=== PATIENT | male | born 1945 | race Two or more races ===

== ENCOUNTER 2017-05-13 08:07 | Emergency (ER) | payer MEDICARE, OTHER ==
[2017-05-13] MEDS ORDERED: Metoprolol Tartrate 5 MG/5 ML SDV IVPUSH ONE (08:29)
[2017-05-13] MEDS ORDERED: Ticagrelor 90 MG Tab PO ONE (08:29)
[2017-05-13] MEDS ORDERED: Famotidine 20 MG/2 ML SDV IVPUSH ONE (08:29)
[2017-05-13] MEDS ORDERED: Sodium Chloride 0.9% 10 ML Syringe FLUSH PRN ×2 (08:29→09:55)
--- NOTE | 2017-05-13 08:31 | EDM.PDOC ---
ED HPI GENERAL MEDICAL PROBLEM - General Chief Complaint: Chest Pain Stated Complaint: CHEST PAIN, WEAK LEGS Time Seen by Provider: 05/13/17 08:10 Source of Information: Reports: Patient, EMS, EMS Notes Reviewed. Denies: Old Records ([facility] chart/EMR) History Limitations: Reports: No Limitations - History of Present Illness INITIAL COMMENTS - FREE TEXT/NARRATIVE: The patient was brought to the emergency room via ambulance with sales trainee accompaniment with sales trainee intersecting basic responders. Paramedics did place a saline lock, administer one sublingual nitroglycerin tablet and 4 baby aspirin with the patient already taking one sublingual nitroglycerin tablet and a baby aspirin on his own at home earlier this morning. He complains of 8/10 nonspecific paresthesia discomfort with additional 8/10 retrosternal chest pressure associated with heart flutter, dizziness, questionable secondary dystaxia, and dyspnea with symptoms starting at about 6:30 a.m. this morning. He has noticed some recent decreased exercise tolerance with one episode of emesis 4 days ago. No recent history of abdominal pain, heartburn, nausea, diarrhea, melena, gross hematochezia, or any food intolerance, including fatty foods, etc. with normal bowel movement earlier this morning. The patient also denies any recent fever, cough, wheezing, dyspnea, etc.. Onset: Today Onset Date: 05/13/17 Onset Time: 06:00 Duration: Constant Location: Reports: Chest, Other (Generalized paresthesias as above). Denies: Head, Face, Neck, Abdomen, Back, Upper Extremity, Left, Upper Extremity, Right, Generalized, Radiates to Quality: Reports: Pressure, Same as Previous Episode Severity: Moderate Improves with: Reports: None Worsens with: Reports: None Context: Reports: Other (As above) Associated Symptoms: Reports: Shortness of Breath. 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: Reports: Aspirin, IV/IO, Nitroglycerin, Oxygen Chest Pain Score (Numeric/FACES): 8 - Related Data Allergies Allergy/AdvReac Type Severity Reaction Status Date / Time Penicillins Allergy Rash Verified 05/13/17 08:20 Home Meds: Home Meds Allopurinol [Zyloprim] 100 mg PO DAILY 05/13/17 [History] Aspirin [Aspirin EC] 325 mg PO DAILY 05/13/17 [History] Calcitriol 0.25 mcg PO DAILY 05/13/17 [History] Carvedilol [Coreg] 3.125 mg PO BID 05/13/17 [History] Digoxin 125 mcg PO DAILY 05/13/17 [History] Furosemide 40 mg PO 1800 05/13/17 [History] Furosemide [Lasix] 80 mg PO DAILY 05/13/17 [History] Gabapentin [Neurontin] 300 mg PO TID 05/13/17 [History] Isosorbide Mononitrate [Imdur] 60 mg PO BID 05/13/17 [History] Levothyroxine Sodium [Levo-T] 25 mcg PO DAILY 05/13/17 [History] Pantoprazole Sodium 40 mg PO DAILY 05/13/17 [History] Ranolazine [Ranexa] 1,000 mg PO BID 05/13/17 [History] atorvaSTATin Calcium [Atorvastatin Calcium] 20 mg PO DAILY 05/13/17 [History] traMADol Hcl/Acetaminophen [Ultracet Tablet] 1 each PO TID PRN 05/13/17 [History ] Past Medical History HEENT History: Reports: Cataract, Impaired Vision, Other (See Below). Denies: Allergic Rhinitis, Glaucoma, Macular Degeneration, Retinal Detachment Other HEENT History: Cataracts with no previous surgeries, patient wears glasses , bilateral presbycusis with current right-sided hearing aid therapy Cardiovascular History: Reports: Bypass, CAD, Cardiomyopathy, Heart Failure, Heart Murmur, High Cholesterol, Hypertension, Pacemaker, PVD, SOB on Exertion, Other (See Below). Denies: Afib, Aneurysm, Arrhythmia, Blood Clots/VTE/DVT, MA , Syncope Other Cardiovascular History: No previous history of MA or arrhythmia with status post CABG as below and pacemaker placement for his CHF Respiratory History: Reports: COPD, Intubation, Previous, Sleep Apnea, SOB, Other (See Below). Denies: Asthma, Intubation, Difficult, PE, Pneumothorax, TB Other Respiratory History: COPD by chest x-ray with no current medical therapy, chronic dyspnea likely secondary to his cardiac and pulmonary disease, sleep apnea with previous CPAP use with patient noncompliant at this time Gastrointestinal History: Reports: Diverticulosis, GERD, GI Bleed, PUD, Other ( See Below). Denies: Bowel Obstruction, Celiac Disease, Cholelithiasis, Chronic Constipation, Chronic Diarrhea, Colon Polyp, Fecal Incontinence, Gastritis, Hepatitis, Hiatal Hernia, Inflammatory Bowel Disease, Irritable Bowel Syndrome, Jaundice, Pancreatitis Other Gastrointestinal History: History of gastric ulcer with no upper GI bleed , however severe lower GI bleed secondary to diverticulitis in about 2013 with multiple blood transfusions as below Genitourinary History: Reports: BPH, Chronic Renal Insuffiency, Diabetic Nephropathy, Renal Calculus, Other (See Below). Denies: Acute Renal Failure, STD, Urinary Incontinence, UTI, Recurrent Other Genitourinary History: Urolithiasis in his 40s with spontaneous passage with unknown side Musculoskeletal History: Reports: Arthritis, Back Pain, Chronic, Gout, Neck Pain , Chronic, Osteoarthritis, Osteoporosis. Denies: Amputation, Fracture, RA, SLE Neurological History: Reports: Neuropathy, Diabetic, Neuropathy, Peripheral. Denies: Brain Injury, Cerebral Aneurysms, Concussion, CVA, Headaches, Chronic, Head Trauma, Migraines, MS, Parkinson's, Seizure, TIA Psychiatric History: Reports: Addiction, Anxiety, Depression, Other (See Below) . 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 Denies: Diabetes, Type I Hematologic History: Reports: Anemia, Blood Transfusion(s), Other (See Below) ( Multiple blood transfusions secondary to severe lower GI bleed from diverticulitis in about 2013) Immunologic History: Reports: None. Denies: AIDS, HIV, SLE Oncologic (Cancer) History: Reports: None. Denies: Colon, Hodgkin's Lymphoma, Leukemia, Lymphoma, Malignant Melanoma, Non-Hodgkin's Lymphoma, Prostate, Squamous Cell Carcinoma Dermatologic History: Reports: None. Denies: Eczema, Psoriasis - Infectious Disease History Infectious Disease History: Reports: None. Denies: C-Difficile, Chicken Pox, Measles, Meningitis, Mononucleosis, MRSA, Mumps, Pertussis (Whooping Cough), Rheumatic Fever, Rubella, Scarlet Fever, Shingles, VRE - Past Surgical History Head Surgeries/Procedures: Reports: None HEENT Surgical History: Reports: Oral Surgery, Other (See Below). Denies: Adenoidectomy, Cataract Surgery, Detached Retina, Eye Surgery, Laser Surgery, LASIK, Myringotomy w Tube(s), Naso-Sinus Surgery, Tonsillectomy Other HEENT Surgeries/Procedures: Multiple teeth extractions Cardiovascular Surgical History: Reports: Coronary Artery Bypass, Pacer, Other ( See Below). Denies: Coronary Artery Stent, Percutaneous Transluminal Angioplasty Other Cardiovascular Surgeries/Procedures: Pacemaker in about 2011, CABG 3 in 2010 Respiratory Surgical History: Reports: None. Denies: Thoracentesis GI Surgical History: Reports: Colonoscopy, Other (See Below). Denies: Appendectomy, Cholecystectomy, EGD, Hernia, Abdominal, Hernia, Inguinal, Hernia Repair/Other, Polypectomy Other GI Surgeries/Procedures: Multiple previous colonoscopies last in 2013 Male Surgical History: Reports: None. Denies: Circumcision, Kidney Stone Extraction, Renal Calculus, TURP-Transurethral Resection of Prostate, Vasectomy Endocrine Surgical History: Reports: None. Denies: Thyroid Biopsy Neurological Surgical History: Reports: Lumbar Spine, Spinal Fusion, Thoracic Spine, Other (See Below). Denies: C-Spine Other Neurological Surgeries/Procedures: Possible spinal fusion 3 in the lower thoracic and lumbar regions in 2014 Musculoskeletal Surgical History: Denies: Arthroscopic Procedure, Carpal Tunnel , Ganglion Cyst, Joint Replacement, ORIF, Shoulder Surgery Oncologic Surgical History: Reports: None Dermatological Surgical History: Reports: None Social & Family History - Tobacco Use Smoking Status *Q: Former Smoker Tobacco Use Within Last Twelve Months: Cigarettes Years of Tobacco use: 33 Packs/Tins Daily: 0.5 (Smoked between ages 12 and 45 and stopped in 1990) Used Tobacco, but Quit: Yes Month Tobacco Last Used: As above Smoking Cessation Information Provided To Patient: No Second Hand Smoke Exposure: Yes Source of Second Hand Smoke Exposure: smokes Second Hand Smoke Education Provided: Yes - Caffeine Use Caffeine Use: Reports: Coffee (1 cup per day during the winter), Soda (1 soda per week), Tea (1 glass per day). Denies: Energy Drinks - Alcohol Use Alcohol Use History: No Days Per Week of Alcohol Use: 0 (No previous DWIs, problems with alcohol abuse, etc.) Alcohol Use in Last Twelve Months: No - Recreational Drug Use Recreational Drug Use: No Drug Use in Last 12 Months: No Recreational Drug Type: Reports: Cocaine (Snorting cocaine in his 30s with no previous treatment and use of about one year), Marijuana/Hashish (Marijuana use in his 20s). 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 Denies: Fever, Chills, Malaise, Weakness , Night Sweats, Diaphoresis, Decreased Appetite, Weight Loss HEENT: Reports: Glasses, Hearing Loss (Stable chronic). Denies: Dental Pain, Ear Discharge, Ear Pain, Eye Discharge, Eye Pain, Nose Pain, Rhinitis, Sinus Problem, Throat Pain, Throat Swelling, Vertigo, Vision Change Respiratory: Reports: Shortness of Breath. Denies: Wheezing, Pleuritic Chest Pain, Cough, Hemoptysis Cardiovascular: Reports: Chest Pain, Dyspnea on Exertion, Lightheadedness, Palpitations. Denies: Blood Pressure Problem, Claudication, Edema, Orthopnea, PND, Syncope Endocrine: Reports: No Symptoms, Fatigue (Decreased exercise tolerance) GI/Abdominal: Reports: No Symptoms. Denies: Abdominal Pain, Anorexia, Black Stool, Bloody Stool, Constipation, Diarrhea, Distension, Flatus, Hematemesis, Hematochezia, Melena, Nausea, Stool Incontinence, Vomiting : Reports: No Symptoms. Denies: Discharge, Dysuria, Flank Pain, Frequency, Hematuria, Incontinence, Pain, Urgency, Urinary Retention Musculoskeletal: Reports: No Symptoms. Denies: Neck Pain, Shoulder Pain, Arm Pain, Leg Pain Skin: Reports: No Symptoms. Denies: Diaphoresis, Bruising, Wound Neurological: Reports: Dizziness, Numbness, Paresthesia, Tingling. Denies: Confusion, Headache, Seizure, Syncope, Trouble Speaking, Difficulty Walking, Weakness, Change in Speech, Gait Disturbance Psychiatric: Reports: No Symptoms. Denies: Agitation, Anxiety, Confusion, Depression, Hallucinations, Homicidal Ideation, Mood Lability, Suicidal Ideation Hematologic/Lymphatic: Reports: No Symptoms Immunologic: Reports: No Symptoms ED EXAM, GENERAL - Physical Exam Exam: See Below Exam Limited By: No Limitations General Appearance: Alert, WD/WN, No Apparent Distress Eye Exam: Bilateral Eye: EOMI, Normal Fundi (No nystagmus), PERRL Ears: Normal External Exam, Normal Canal, Normal TMs, Hearing Loss (Mild to moderate bilateral presbycusis with no hearing aids present today) Nose: Normal Inspection, Normal Mucosa, No Blood Throat/Mouth: Normal Inspection, Normal Lips, Normal Gums, Normal Oropharynx, Normal Voice, No Airway Compromise. No: Normal Teeth (Multiple missing teeth), Dysphagia, Perioral Cyanosis Head: Atraumatic, Normocephalic. No: Facial Swelling, Facial Tenderness, Sinus Tenderness Neck: Normal Inspection, Supple, Non-Tender, Full Range of Motion, Carotid Bruit (Mild Bilateral carotid bruits versus transmitted heart sounds). No: Lymphadenopathy (L), Lymphadenopathy (R), Thyromegaly Respiratory/Chest: No Respiratory Distress, No Accessory Muscle Use, Chest Non- Tender, Rales (Mild bilateral basilar rales). No: Pleural Rub, Retractions Cardiovascular: Normal Peripheral Pulses, Regular Rate, Rhythm, No Edema, No Gallop, No JVD, No Rub, Systolic Murmur (Mild 1/6 JAKOB at the aortic and mitral valves). No: Gallop/S3, Gallop/S4, Friction Rub Peripheral Pulses: 3+: Radial (L), Radial (R), Dorsalis Pedis (L), Dorsalis Pedis (R) GI/Abdominal: Normal Bowel Sounds, Soft, Non-Tender, No Organomegaly, No Distention, No Abnormal Bruit, No Mass, Pelvis Stable. No: Guarding (Male) Exam: Deferred Rectal (Males) Exam: Deferred Back Exam: Normal Inspection, Full Range of Motion. No: CVA Tenderness (L), CVA Tenderness (R), Muscle Spasm Extremities: Normal Inspection, Normal Range of Motion, Non-Tender, No Pedal Edema, Normal Capillary Refill. No: Bart's Sign Neurological: Alert, Oriented, CN II-XII Intact, Normal Cognition, Normal Gait, Normal Reflexes (Negative Babinski's), No Motor/Sensory Deficits Psychiatric: Normal Affect, Normal Mood Skin Exam: Warm, Dry, Intact, Normal Color, No Rash. No: Ecchymosis, Petechiae , Wound/Incision Lymphatic: No Adenopathy EKG INTERPRETATION EKG Date: 05/13/17 Time: 08:32 Rhythm: Other (100% paced) Rate (Beats/Min): 71 Cadott: LAD-Left Cadott Deviation P-Wave: Absent QRS: Wide (Secondary to pacer) ST-T: Other (Paced rhythm) QT: Normal (Paced rhythm) Comparison: NA - No Prior EKG EKG Interpretation Comments: 1. 100% paced rhythm 2. No acute ischemic changes Course - Vital Signs Last Recorded V/S: Last Vital Signs Temp 36.1 C 05/13/17 08:29 Pulse 70 05/13/17 10:02 Resp 16 05/13/17 10:02 BP 138/62 05/13/17 10:02 Pulse Ox 100 05/13/17 10:02 Vital Signs - 24 hr 05/13/17 05/13/17 05/13/17 08:09 08:29 08:39 Temperature [ 36.1 C 36.1 C Temporal] Pulse, 70 Peripheral Pulse, 78 70 Peripheral [ Left Pulse Oximetry] Respiratory 16 12 Rate Blood Pressure 148/66 H Blood Pressure 155/76 H 148/66 H [Right Upper Arm] O2 Sat by Pulse 99 100 Oximetry 05/13/17 05/13/17 05/13/17 08:49 09:01 09:16 Temperature [ Temporal] Pulse, Peripheral Pulse, 70 70 70 Peripheral [ Left Pulse Oximetry] Respiratory 14 16 15 Rate Blood Pressure Blood Pressure 142/52 H 146/68 H 141/65 H [Right Upper Arm] O2 Sat by Pulse 100 100 100 Oximetry 05/13/17 05/13/17 05/13/17 09:31 09:46 10:02 Temperature [ Temporal] Pulse, Peripheral Pulse, 70 70 70 Peripheral [ Left Pulse Oximetry] Respiratory 15 12 16 Rate Blood Pressure Blood Pressure 131/65 104/61 138/62 [Right Upper Arm] O2 Sat by Pulse 100 100 100 Oximetry - Orders/Labs/Meds Orders: Active Orders 24 hr Category Date Time Status Cardiac Monitoring [RC] . DIRECTED Care 05/13/17 08:29 Active EKG Documentation Completion [RC] ASDIRECTED Care 05/13/17 08:29 Active Oxygen Therapy, ED [RC] CONTINUOUS Care 05/13/17 08:29 Active Peripheral IV Care [RC] . DIRECTED Care 05/13/17 08:29 Active Peripheral IV Care [RC] . DIRECTED Care 05/13/17 09:56 Active Pulse Oximetry [RC] CONTINUOUS Care 05/13/17 08:29 Active Up With Assistance [RC] PFP Care 05/13/17 08:29 Active Vital Signs [RC] PFP Care 05/13/17 08:29 Active Nothing per Oral Now Diet [DIET] Diet 05/13/17 Breakfast Active Chest 1V Frontal [CR] Stat Exams 05/13/17 08:29 Taken Heparin Sodium/D5W [Heparin 25,000 Units in D5W 500 ML] Med 05/13/17 10:00 Active 25,000 units in 500 ml IV TITRATE Nitroglycerin/D5W [Nitroglycerin 25 MG/D5W 250 ML] Med 05/13/17 09:00 Active 25 mg in 250 ml IV TITRATE Sodium Chloride 0.9% [Normal Saline] 1,000 ml Med 05/13/17 09:00 Active IV ASDIRECTED Sodium Chloride 0.9% [Saline Flush] Med 05/13/17 08:29 Active 10 ml FLUSH ASDIRECTED PRN Sodium Chloride 0.9% [Saline Flush] Med 05/13/17 09:55 Active 10 ml FLUSH ASDIRECTED PRN Obtain Past Medical Record [OM.PC] Urgent Oth 05/13/17 08:29 Active Peripheral IV Insertion Adult [OM.PC] Routine Oth 05/13/17 09:56 Ordered Peripheral IV Insertion Adult [OM.PC] Stat Oth 05/13/17 08:29 Ordered Resuscitation Status Stat Resus Stat 05/13/17 08:29 Ordered Medication Orders Nitroglycerin/Dextrose (Nitroglycerin 25 Mg/D5w 250 Ml) 25 mg in 250 mls @ 6 mls/hr IV TITRATE ROSETTA PRN Reason: 10 MCG/MIN Last Admin: 05/13/17 08:56 Dose: 10 mcg/min, 6 mls/hr Sodium Chloride (Normal Saline) 1,000 mls @ 30 mls/hr IV ASDIRECTED ROSETTA Last Admin: 05/13/17 08:56 Dose: 30 mls/hr Heparin Sodium/Dextrose (Heparin 25,000 Units In D5w 500 Ml) 25,000 units in 500 mls @ 0 mls/hr IV TITRATE ROSETTA; 12 UNITS/KG/HR PRN Reason: Protocol Last Admin: 05/13/17 10:03 Dose: 12.05 units/kg/hr, 17.5 mls/hr Sodium Chloride (Saline Flush) 10 ml FLUSH ASDIRECTED PRN PRN Reason: Keep Vein Open Sodium Chloride (Saline Flush) 10 ml FLUSH ASDIRECTED PRN PRN Reason: Keep Vein Open Labs: Laboratory Tests 05/13/17 05/13/17 05/13/17 Range/Units 08:15 08:15 08:15 WBC 11.2 H (4.0-10.2) K/uL RBC 2.90 L (4.33-5.41) M/uL Hgb 9.7 L (13.1-16.8) g/dL Hct 28.1 L (39.0-49.0) % MCV 96.9 (84.0-98.0) fL MCH 33.4 H (28.2-33.3) pg MCHC 34.5 (31.7-36.0) g/dL RDW 14.0 (11.2-14.1) % Plt Count 189 (150-350) K/uL Neut % (Auto) 80.2 H (45.0-80.0) % Lymph % (Auto) 9.2 L (10.0-50.0) % [place] % (Auto) 9.0 (2.0-14.0) % Eos % (Auto) 1.4 (0.0-5.0) % Baso % (Auto) 0.2 (0.0-2.0) % Neut # (Auto) 9.00 H (1.40-7.00) K/uL Lymph # (Auto) 1.03 (0.50-3.50) K/uL [place] # (Auto) 1.01 H (0.00-1.00) K/uL Eos # (Auto) 0.16 (0.00-0.50) K/uL Baso # (Auto) 0.02 (0.00-0.20) K/uL PT 10.6 (9.8-11.7) SEC INR 1.0 APTT 26.2 (23.5-30.0) SEC D-Dimer, Quantitative 1870 H (0-400) ng/mL Sodium (136-145) mmol/L Potassium (3.5-5.1) mmol/L Chloride (98-107) mmol/L Carbon Dioxide (21.0-32.0) mmol/L BUN (7-18) mg/dL Creatinine (0.51-1.17) mg/dL Est Cr Clr Drug Dosing mL/min Estimated GFR (MDRD) mL/min Glucose (74-106) mg/dL Lactic Acid (0.4-2.0) mmol/L Uric Acid (2.6-7.2) mg/dL Calcium (8.5-10.1) mg/dL Magnesium (1.8-2.4) mg/dL Total Bilirubin (0.2-1.0) mg/dL AST (15-37) U/L ALT (12-78) U/L Alkaline Phosphatase (46-116) IU/L Creatine Kinase (26-308) U/L Creatine Kinase Index (0.0-2.5) % CK-MB (CK-2) (0.00-3.60) ng/mL Troponin I (0.000-0.056) ng/mL NT-Pro-B Natriuret Pep (0-125) pg/mL Total Protein (6.4-8.2) g/dL Albumin (3.4-5.0) g/dL TSH, Ultra Sensitive (0.358-3.740) mIU/mL Digoxin (0.90-2.00) ng/mL 05/13/17 05/13/17 Range/Units 08:15 08:15 WBC (4.0-10.2) K/uL RBC (4.33-5.41) M/uL Hgb (13.1-16.8) g/dL Hct (39.0-49.0) % MCV (84.0-98.0) fL MCH (28.2-33.3) pg MCHC (31.7-36.0) g/dL RDW (11.2-14.1) % Plt Count (150-350) K/uL Neut % (Auto) (45.0-80.0) % Lymph % (Auto) (10.0-50.0) % Edmonson % (Auto) (2.0-14.0) % Eos % (Auto) (0.0-5.0) % Baso % (Auto) (0.0-2.0) % Neut # (Auto) (1.40-7.00) K/uL Lymph # (Auto) (0.50-3.50) K/uL [place] # (Auto) (0.00-1.00) K/uL Eos # (Auto) (0.00-0.50) K/uL Baso # (Auto) (0.00-0.20) K/uL PT (9.8-11.7) SEC INR APTT (23.5-30.0) SEC D-Dimer, Quantitative (0-400) ng/mL Sodium 130 L (136-145) mmol/L Potassium 4.6 (3.5-5.1) mmol/L Chloride 95 L (98-107) mmol/L Carbon Dioxide 24.9 (21.0-32.0) mmol/L BUN 62 H (7-18) mg/dL Creatinine 3.15 H* (0.51-1.17) mg/dL Est Cr Clr Drug Dosing 18.01 mL/min Estimated GFR (MDRD) 20 mL/min Glucose 220 H (74-106) mg/dL Lactic Acid 0.6 (0.4-2.0) mmol/L Uric Acid 6.7 (2.6-7.2) mg/dL Calcium 7.9 L (8.5-10.1) mg/dL Magnesium 1.6 L (1.8-2.4) mg/dL Total Bilirubin 0.7 (0.2-1.0) mg/dL AST 12 L (15-37) U/L ALT 16 (12-78) U/L Alkaline Phosphatase 88 (46-116) IU/L Creatine Kinase 123 (26-308) U/L Creatine Kinase Index 2.5 (0.0-2.5) % CK-MB (CK-2) 3.10 (0.00-3.60) ng/mL Troponin I 0.057 H (0.000-0.056) ng/mL NT-Pro-B Natriuret Pep 1220 H (0-125) pg/mL Total Protein 6.6 (6.4-8.2) g/dL Albumin 3.3 L (3.4-5.0) g/dL TSH, Ultra Sensitive 1.032 (0.358-3.740) mIU/mL Digoxin 4.17 H* (0.90-2.00) ng/mL Meds: Medications Generic Name Dose Route Start Last Admin Trade Name Freq PRN Reason Stop Dose Admin Nitroglycerin/Dextrose 25 mg in 250 mls @ 6 mls/hr 05/13/17 09:00 05/13/17 08 :56 Nitroglycerin 25 Mg/D5w 250 Ml IV 10 mcg/min TITRATE ROSETTA 6 mls/hr 10 MCG/MIN Administration Sodium Chloride 1,000 mls @ 30 mls/hr 05/13/17 09:00 05/13/17 08:56 Normal Saline IV 30 mls/hr ASDIRECTED ROSETTA Administration Heparin Sodium/Dextrose 25,000 units in 500 mls @ 0 mls/hr 05/13/17 10:00 10:03 Heparin 25,000 Units In D5w 500 Ml IV 12.05 units/kg/hr TITRATE ROSETTA 17.5 mls/hr Protocol Administration 12 UNITS/KG/HR Sodium Chloride 10 ml 05/13/17 08:29 Saline Flush FLUSH ASDIRECTED PRN Keep Vein Open Sodium Chloride 10 ml 05/13/17 09:55 Saline Flush FLUSH ASDIRECTED PRN Keep Vein Open Discontinued Medications Generic Name Dose Route Start Last Admin Trade Name Freq PRN Reason Stop Dose Admin Famotidine 40 mg 05/13/17 08:29 05/13/17 08:39 Pepcid IVPUSH 05/13/17 08:30 40 mg ONETIME ONE Administration Furosemide 60 mg 05/13/17 08:56 05/13/17 09:14 Lasix IVPUSH 05/13/17 08:57 60 mg NOW ONE Administration Metoprolol Tartrate 2.5 mg 05/13/17 08:29 05/13/17 08:39 Lopressor IVPUSH 05/13/17 08:30 2.5 mg ONETIME ONE Administration Ticagrelor 180 mg 05/13/17 08:29 05/13/17 08:38 Brilinta PO 05/13/17 08:30 180 mg ONETIME ONE Administration - Radiology Interpretation Free Text/Narrative:: 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 Moderate COPD noted with evidence of mild centralized CHF and probable pulmonary hypertension. Somewhat poor inspiratory film. Some left lower lobe atelectasis versus Rigo B lines but no evidence of other significant pulmonary infiltrates, pneumothorax, etc. Departure - Departure Time of Disposition: 10:40 Disposition: DC/Tfer to [facility] 02 Reason for Transfer *Q: Other (Cardiology consultation on arrival) Condition: Fair Clinical Impression: Hypoalbuminemia, Hypomagnesemia, Hypocalcemia, D-dimer, elevated Chest pain Qualifiers: Chest pain type: chest pain due to myocardial ischemia Ischemic chest pain type : unstable angina pectoris Qualified Code(s): I20.0 - Unstable angina CHF (congestive heart failure) Qualifiers: Congestive heart failure type: unspecified congestive heart failure type Congestive heart failure chronicity: acute on chronic Qualified Code(s): I50.9 - Heart failure, unspecified Digoxin toxicity Qualifiers: Encounter type: initial encounter Injury intent: undetermined intent Qualified Code(s): T46.0X4A - Poisoning by cardiac-stimulant glycosides and drugs of similar action, undetermined, initial encounter Renal failure Qualifiers: Renal failure chronicity: acute on chronic Acute renal failure type: unspecified Chronic kidney disease stage: stage 4 (severe) Qualified Code(s): N17.9 - Acute kidney failure, unspecified Anemia Qualifiers: Anemia type: due to chronic kidney disease Chronic kidney disease stage: stage 4 (severe) Qualified Code(s): N18.4 - Chronic kidney disease, stage 4 (severe) Osteoarthritis Qualifiers: Osteoarthritis location: multiple joints Osteoarthritis type: primary Qualified Code(s): M15.0 - Primary generalized (osteo)arthritis COPD (chronic obstructive pulmonary disease) Qualifiers: COPD type: emphysema Emphysema type: panlobular Qualified Code(s): J43.1 - Panlobular emphysema Diabetes mellitus Qualifiers: Diabetes mellitus type: type 2 Diabetes mellitus complication status: with kidney complications Diabetes mellitus complication detail: with chronic kidney disease Diabetes mellitus long term care pharmacist insulin use: without long term care pharmacist use Chronic kidney disease stage: stage 4 (severe) Qualified Code(s): E11.22 - Type 2 diabetes mellitus with diabetic chronic kidney disease Referrals: PCP,None [Primary Care Provider] - Forms: ED Department Discharge, Interfacility Transfer EMTALA - Problem List & Annotations (1) Chest pain SNOMED Code(s): 96107970 Code(s): R07.9 - CHEST PAIN, UNSPECIFIED Status: Acute Priority: High Current Visit: Yes Onset Date: 05/13/17 Annotation/Comment:: Chest pain protocol initiated immediately upon patient's arrival to the emergency room. Her known significant cardiac disease as above including previous CABG. Patient did require nitroglycerin infusion therapy to relieve his chest discomfort. Telephone consultation at 09:[address] Nicolas, hospitalist at [facility], who does accept the patient for recognition and further cardiology consultation/evaluation. He is aware of the patient's anemia and distant history of lower GI bleed. Per his recommendations IV heparin infusion was started at 12 units per kilogram per hour with no IV bolus per his recommendations secondary to his anemia, etc. as above. No further treatment recommendations given. Vital signs, etc. stable at time of transfer. Probable non-STEMI, however difficult to assess secondary to patient's current pacemaker Qualifiers: Chest pain type: chest pain due to myocardial ischemia Ischemic chest pain type: unstable angina pectoris Qualified Code(s): I20.0 - Unstable angina (2) CHF (congestive heart failure) SNOMED Code(s): 61267539 Code(s): I50.9 - HEART FAILURE, UNSPECIFIED Status: Acute Priority: High Current Visit: Yes Onset Date: ~05/13/17 Annotation/Comment:: Patient does take high-dose oral Lasix at home with patient taking all this morning medications today. Additional 60 mg of IV Lasix given in the emergency room. Mild centralized CHF by chest x-ray and clinical exam despite significantly elevated BNP with kidney disease likely a contributing factor Qualifiers: Congestive heart failure type: unspecified congestive heart failure type Congestive heart failure chronicity: acute on chronic Qualified Code(s): I50.9 - Heart failure, unspecified (3) Renal failure SNOMED Code(s): 78179780 Code(s): N19 - UNSPECIFIED KIDNEY FAILURE Status: Acute Priority: High Current Visit: Yes Onset Date: 05/13/17 Annotation/Comment:: Known history of chronic renal insufficiency/diabetic nephropathy, however baseline creatinine status unknown. Qualifiers: Renal failure chronicity: acute on chronic Acute renal failure type: unspecified Chronic kidney disease stage: stage 4 (severe) Qualified Code(s) : N17.9 - Acute kidney failure, unspecified; N18.4 - Chronic kidney disease, stage 4 (severe) (4) Anemia SNOMED Code(s): 221372913 Code(s): D64.9 - ANEMIA, UNSPECIFIED Status: Acute Priority: High Current Visit: Yes Onset Date: ~05/13/17 Annotation/Comment:: Probable history of chronic anemia from his renal disease. Note distant history of lower GI bleed secondary to severe diverticulitis. No evidence of abdominal pain, lower GI bleed, etc. at this time. High-dose IV Pepcid given as GI prophylaxis immediately on patient's arrival to the emergency room. Further workup depending on his clinical course Qualifiers: Anemia type: due to chronic kidney disease Chronic kidney disease stage: stage 4 (severe) Qualified Code(s): N18.4 - Chronic kidney disease, stage 4 ( severe); D63.1 - Anemia in chronic kidney disease (5) COPD (chronic obstructive pulmonary disease) SNOMED Code(s): 33865947 Code(s): J44.9 - CHRONIC OBSTRUCTIVE PULMONARY DISEASE, UNSPECIFIED Status : Chronic Priority: Medium Current Visit: Yes Annotation/Comment:: COPD by chest x-ray with no evidence of acute pneumonia. No recent fever, bronchitic type symptoms, etc. Patient does not take any medications for this problem. Consider PFTs once his cardiac status has stabilized Qualifiers: COPD type: emphysema Emphysema type: panlobular Qualified Code(s): J43.1 - Panlobular emphysema (6) Diabetes mellitus SNOMED Code(s): 59174475 Code(s): E11.9 - TYPE 2 DIABETES MELLITUS WITHOUT COMPLICATIONS Status: Chronic Priority: Medium Current Visit: Yes Annotation/Comment:: Note current Victoza therapy with diabetic nephropathy and neuropathy. Blood sugars sugars are elevated today. Consider glycosylated hemoglobin on admission. She may be a candidate for insulin therapy. Endocrinology consultation depending on her clinical course Qualifiers: Diabetes mellitus type: type 2 Diabetes mellitus complication status: with kidney complications Diabetes mellitus complication detail: with chronic kidney disease Diabetes mellitus long-term insulin use: without long-term use Chronic kidney disease stage: stage 4 (severe) Qualified Code(s): E11.22 - Type 2 diabetes mellitus with diabetic chronic kidney disease; N18.4 - Chronic kidney disease, stage 4 (severe) (7) Digoxin toxicity SNOMED Code(s): 71650399 Code(s): T46.0X1A - POISONING BY CARDI-STIM GLYCOS/DRUG SIMLAR ACT, ACC, INIT Status: Acute Priority: High Current Visit: Yes Onset Date: Annotation/Comment:: The patient did take his Lanoxin this morning. Note significant digoxin toxicity. Additional high-dose IV Lasix 60 mg given in the emergency room with the patient already taking his high-dose oral medication prior to arrival. Further therapy including possible emesis, etc. depending on his clinical course Qualifiers: Encounter type: initial encounter Injury intent: undetermined intent Qualified Code(s): T46.0X4A - Poisoning by cardiac-stimulant glycosides and drugs of similar action, undetermined, initial encounter (8) Hypoalbuminemia SNOMED Code(s): 152131133 Code(s): E88.09 - OTH DISORDERS OF PLASMA-PROTEIN METABOLISM, NEC Status: Chronic Priority: Medium Current Visit: Yes Onset Date: 05/13/17 Annotation/Comment:: Consider high-protein Glucerna supplements as snacks with caution secondary to her renal disease (9) Hypocalcemia SNOMED Code(s): 2491365 Code(s): E83.51 - HYPOCALCEMIA Status: Chronic Priority: Medium Current Visit: Yes Onset Date: 05/13/17 Annotation/Comment:: Observe for now (10) Hypomagnesemia SNOMED Code(s): 982337920 Code(s): E83.42 - HYPOMAGNESEMIA Status: Acute Priority: Medium Current Visit: Yes Onset Date: 05/13/17 Annotation/Comment:: Consider Low dose magnesium oxide supplementation with caution secondary to her renal disease (11) Osteoarthritis SNOMED Code(s): 291886411 Code(s): M19.90 - UNSPECIFIED OSTEOARTHRITIS, UNSPECIFIED SITE Status: Chronic Priority: Medium Current Visit: Yes Annotation/Comment:: Stable by history with known history of gout but no recent gout attacks Qualifiers: Osteoarthritis location: multiple joints Osteoarthritis type: primary Qualified Code(s): M15.0 - Primary generalized (osteo)arthritis (12) D-dimer, elevated SNOMED Code(s): 744200129 Code(s): R79.89 - OTHER SPECIFIED ABNORMAL FINDINGS OF BLOOD CHEMISTRY Status: Acute Priority: High Current Visit: Yes Onset Date: 05/13/17 Annotation/Comment:: D-dimer elevation possibly secondary to his acute MA. No clinical evidence of DVT or PE. Patient is not a candidate for CTA of the chest secondary to his renal function. Consider venous Doppler studies of the lower extremities, VQ scan, etc. depending on his clinical course - Problem List Review Problem List Initiated/Reviewed/Updated: Yes - My Orders Last 24 Hours: My Active Orders 05/13/17 08:29 Cardiac Monitoring [RC] . DIRECTED EKG Documentation Completion [RC] ASDIRECTED Oxygen Therapy, ED [RC] CONTINUOUS Peripheral IV Care [RC] . DIRECTED Pulse Oximetry [RC] CONTINUOUS Up With Assistance [RC] PFP Vital Signs [RC] PFP Chest 1V Frontal [CR] Stat Sodium Chloride 0.9% [Saline Flush] 10 ml FLUSH ASDIRECTED PRN Obtain Past Medical Record [OM.PC] Urgent Peripheral IV Insertion Adult [OM.PC] Stat Resuscitation Status Stat 05/13/17 09:00 Nitroglycerin/D5W [Nitroglycerin 25 MG/D5W 250 ML] 25 mg in 250 ml IV TITRATE Sodium Chloride 0.9% [Normal Saline] 1,000 ml IV ASDIRECTED 05/13/17 09:55 Sodium Chloride 0.9% [Saline Flush] 10 ml FLUSH ASDIRECTED PRN 05/13/17 09:56 Peripheral IV Care [RC] . DIRECTED Peripheral IV Insertion Adult [OM.PC] Routine 05/13/17 10:00 Heparin Sodium/D5W [Heparin 25,000 Units in D5W 500 ML] 25,000 units in 500 ml IV TITRATE 05/13/17 Breakfast Nothing per Oral Now Diet [DIET] - Assessment/Plan Last 24 Hours: My Active Orders 05/13/17 08:29 Cardiac Monitoring [RC] . DIRECTED EKG Documentation Completion [RC] ASDIRECTED Oxygen Therapy, ED [RC] CONTINUOUS Peripheral IV Care [RC] . DIRECTED Pulse Oximetry [RC] CONTINUOUS Up With Assistance [RC] PFP Vital Signs [RC] PFP Chest 1V Frontal [CR] Stat Sodium Chloride 0.9% [Saline Flush] 10 ml FLUSH ASDIRECTED PRN Obtain Past Medical Record [OM.PC] Urgent Peripheral IV Insertion Adult [OM.PC] Stat Resuscitation Status Stat 05/13/17 09:00 Nitroglycerin/D5W [Nitroglycerin 25 MG/D5W 250 ML] 25 mg in 250 ml IV TITRATE Sodium Chloride 0.9% [Normal Saline] 1,000 ml IV ASDIRECTED 05/13/17 09:55 Sodium Chloride 0.9% [Saline Flush] 10 ml FLUSH ASDIRECTED PRN 05/13/17 09:56 Peripheral IV Care [RC] . DIRECTED Peripheral IV Insertion Adult [OM.PC] Routine 05/13/17 10:00 Heparin Sodium/D5W [Heparin 25,000 Units in D5W 500 ML] 25,000 units in 500 ml IV TITRATE 05/13/17 Breakfast Nothing per Oral Now Diet [DIET] Assessment:: As above Plan: As above. Extensive precautions were given to the patient, who is in agreement with the treatment plan. Ambulance transfer with sales trainee accompaniment
[2017-05-13] MEDS ORDERED: Furosemide 40 MG/4 ML VIAL IVPUSH ONE (08:56)
[2017-05-13] MEDS ORDERED: Nitroglycerin/D5W 25 MG/250 ML BOTTLE IV SCH (09:00)
[2017-05-13] MEDS ORDERED: Sodium Chloride 0.9% 1,000 ML IV SCH (09:00)
[2017-05-13] MEDS ORDERED: Heparin Sodium/D5W 25,000 UNITS/500 ML BAG IV SCH (10:00)
[2017-05-13 10:34] VITALS: BP 138/62
== END 2017-05-13 10:40 ==
LOC: LL.ED 08:07
DX: I20.0 Unstable angina (principal); I13.0 Hypertensive heart and chronic kidney disease with heart failure and stage 1 through stage 4 chronic kidney disease, or unspecified chronic kidney disease; I50.9 Heart failure, unspecified; N17.9 Acute kidney failure, unspecified; T46.0X4A Poisoning by cardiac-stimulant glycosides and drugs of similar action, undetermined, initial encounter; E88.09 Other disorders of plasma-protein metabolism, not elsewhere classified; E83.42 Hypomagnesemia; E83.51 Hypocalcemia; R79.89 Other specified abnormal findings of blood chemistry; F41.9 Anxiety disorder, unspecified; F32.9 Major depressive disorder, single episode, unspecified; M81.0 Age-related osteoporosis without current pathological fracture; E03.9 Hypothyroidism, unspecified; N18.4 Chronic kidney disease, stage 4 (severe); D63.1 Anemia in chronic kidney disease; J43.1 Panlobular emphysema; E11.22 Type 2 diabetes mellitus with diabetic chronic kidney disease; E11.40 Type 2 diabetes mellitus with diabetic neuropathy, unspecified; M15.0 Primary generalized (osteo)arthritis; K21.9 Gastro-esophageal reflux disease without esophagitis; Z95.0 Presence of cardiac pacemaker; Z87.440 Personal history of urinary (tract) infections; Z95.1 Presence of aortocoronary bypass graft; Z88.0 Allergy status to penicillin; Z79.82 Long term (current) use of aspirin; Z79.899 Other long term (current) drug therapy; Z87.891 Personal history of nicotine dependence
CPT/HCPCS: 36415; 71010; 80053; 80162; 82550; 82553; 83605; 83735; 83880; 84443; 84484; 84550; 85025; 85379; 85610; 85730; 93005; 96365; 96366; 96368; 96375; 99285; A9270; J1644; J1940; J7030; 93010; J3490; S0028

== ENCOUNTER 2017-05-29 06:42 | Emergency (ER) | payer MEDICARE, OTHER ==
[2017-05-29] MEDS ORDERED: Sodium Chloride 0.9% 10 ML Syringe FLUSH PRN ×2 (06:58→07:25)
[2017-05-29] MEDS ORDERED: Metoprolol Tartrate 5 MG/5 ML SDV IVPUSH ONE (06:58)
[2017-05-29] MEDS ORDERED: Famotidine 20 MG/2 ML SDV IVPUSH ONE (06:58)
[2017-05-29] MEDS ORDERED: Ticagrelor 90 MG Tab PO ONE (06:58)
--- NOTE | 2017-05-29 07:01 | EDM.PDOC ---
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 with heart rate in the 70s with no ectopy or arrhythmia Chest x-ray, portable, shows evidence of mild cardiomegaly and centralized CHF with probable additional pulmonary hypertension with moderate COPD changes, however no evidence of pneumothorax, pulmonary infiltrates, etc. Note status post pacemaker/? AICD placement with leads in appropriate position Departure - Departure Time of Disposition: 09:05 Disposition: DC/Tfer to Acute Hospital 02 Reason for Transfer *Q: Other (Cardiology consultation as below) Condition: Serious Clinical Impression: D-dimer, elevated, Renal insufficiency Chest pain Qualifiers: Chest pain type: chest pain due to myocardial ischemia Ischemic chest pain type : unstable angina pectoris Qualified Code(s): I20.0 - Unstable angina CHF (congestive heart failure) Qualifiers: Congestive heart failure type: unspecified congestive heart failure type Congestive heart failure chronicity: acute on chronic Qualified Code(s): I50.9 - Heart failure, unspecified Anemia Qualifiers: Anemia type: due to chronic kidney disease Chronic kidney disease stage: stage 4 (severe) Qualified Code(s): N18.4 - Chronic kidney disease, stage 4 (severe) COPD (chronic obstructive pulmonary disease) Qualifiers: COPD type: emphysema Emphysema type: panlobular Qualified Code(s): J43.1 - Panlobular emphysema Diabetes mellitus Qualifiers: Diabetes mellitus type: type 2 Diabetes mellitus complication status: with kidney complications Diabetes mellitus complication detail: with chronic kidney disease Diabetes mellitus group home insulin use: without buttermaker use Chronic kidney disease stage: stage 4 (severe) Qualified Code(s): E11.22 - Type 2 diabetes mellitus with diabetic chronic kidney disease Osteoarthritis Qualifiers: Osteoarthritis location: multiple joints Osteoarthritis type: primary Qualified Code(s): M15.0 - Primary generalized (osteo)arthritis Hypotension Qualifiers: Hypotension type: hypotension due to drug Qualified Code(s): I95.2 - Hypotension due to drugs Referrals: PCP,None [Primary Care Provider] - Forms: ED Department Discharge, Interfacility Transfer EMTALA - Problem List & Annotations (1) Chest pain SNOMED Code(s): 44231074 Code(s): R07.9 - CHEST PAIN, UNSPECIFIED Status: Acute Priority: High Current Visit: Yes Onset Date: 05/13/17 Annotation/Comment:: Chest pain protocol initiated immediately upon patient's arrival to the emergency room. He has a known significant cardiac disease as above including previous CABG. Note recent non-STEMI on 05/13/17 with recent adenosine Cardiolite stress test and heart catheterization as above. Extended telephone consultation from 07:50 through 08:[address] Leos, decal applier, Dr. Moyer, cone operator , and Dr. Man, hospitalist, all at [facility] in [place] with Dr. Man accepting patient for direct admission. No further treatment recommendations given by the above physicians. Air ambulances transfer very to patient's significant hypotension as below and persistent 4/10 chest pain prior to transfer. IV heparin was initiated per non-STEMI protocol. 2.5 mg Lopressor IV, Brilinta 180 mg by mouth, and her 0.4 mg of sublingual nitroglycerin were given. The patient did already receive his baby aspirin 4 by the aircraft refueler prior to arrival to our facility. Vital signs, etc. stable at time of transfer despite significant hypotension as above. Possible repeat non-STEMI, however difficult to assess secondary to patient's current pacemaker. Qualifiers: Chest pain type: chest pain due to myocardial ischemia Ischemic chest pain type: unstable angina pectoris Qualified Code(s): I20.0 - Unstable angina (2) CHF (congestive heart failure) SNOMED Code(s): 68662933 Code(s): I50.9 - HEART FAILURE, UNSPECIFIED Status: Acute Priority: High Current Visit: Yes Onset Date: ~05/13/17 Annotation/Comment:: Patient given Lasix 60 mg IV. Mild centralized CHF by chest x-ray and clinical exam despite significantly elevated BNP with kidney disease likely a contributing factor Qualifiers: Congestive heart failure type: unspecified congestive heart failure type Congestive heart failure chronicity: acute on chronic Qualified Code(s): I50.9 - Heart failure, unspecified (3) Hypotension SNOMED Code(s): 72445439 Code(s): I95.9 - HYPOTENSION, UNSPECIFIED Status: Acute Priority: High Current Visit: Yes Onset Date: 05/29/17 Annotation/Comment:: Blood pressure was stable on patient's arrival to our facility however note some elevated blood pressure initially by aircraft refueler as above. After chest pain protocol initiation as above patient was given one sublingual nitroglycerin tablet for his chest pain and also 60 mg of IV Lasix with subsequent development of severe hypertension, including a blood pressure of 61/36. Normal saline IV bolus was immediately initiated with overall quick response to this therapy with no additional medications required. A total of 434 mL of IV saline by bolus was needed prior to normalization of his blood pressure Qualifiers: Hypotension type: hypotension due to drug Qualified Code(s): I95.2 - Hypotension due to drugs (4) Anemia SNOMED Code(s): 638861502 Code(s): D64.9 - ANEMIA, UNSPECIFIED Status: Acute Priority: High Current Visit: Yes Onset Date: ~05/13/17 Annotation/Comment:: Anemia relatively stable to somewhat improved since her last emergency room evaluation in this facility on 05/13/17. Probable history of chronic anemia from his renal disease. Note distant history of lower GI bleed secondary to severe diverticulitis. No evidence of abdominal pain, lower GI bleed, etc. at this time. High-dose IV Pepcid given as GI prophylaxis immediately on patient's arrival to the emergency room. Further workup depending on his clinical course Qualifiers: Anemia type: due to chronic kidney disease Chronic kidney disease stage: stage 4 (severe) Qualified Code(s): N18.4 - Chronic kidney disease, stage 4 ( severe); D63.1 - Anemia in chronic kidney disease (5) D-dimer, elevated SNOMED Code(s): 665711161 Code(s): R79.89 - OTHER SPECIFIED ABNORMAL FINDINGS OF BLOOD CHEMISTRY Status: Acute Priority: High Current Visit: Yes Onset Date: 05/13/17 Annotation/Comment:: D-dimer elevation improved since last evaluation on 05/13/17 , however persists possibly secondary to his acute WI. No clinical evidence of DVT or PE. Patient is not a candidate for CTA of the chest secondary to his renal function. Consider venous Doppler studies of the lower extremities, VQ scan, etc. depending on his clinical course (6) Renal insufficiency SNOMED Code(s): 593219309 Code(s): N28.9 - DISORDER OF KIDNEY AND URETER, UNSPECIFIED Status: Chronic Priority: Medium Current Visit: Yes Annotation/Comment:: Persistent chronic renal insufficiency with history of acute renal failure and digoxin toxicity on 05/13/17. Continue to observe closely by regular providers (7) COPD (chronic obstructive pulmonary disease) SNOMED Code(s): 70809050 Code(s): J44.9 - CHRONIC OBSTRUCTIVE PULMONARY DISEASE, UNSPECIFIED Status : Chronic Priority: Medium Current Visit: Yes Annotation/Comment:: COPD by chest x-ray with no evidence of acute pneumonia. No recent fever, bronchitic type symptoms, etc. Patient does not take any medications for this problem. 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.Endocrinology consultation depending on his clinical course Qualifiers: Diabetes mellitus type: type 2 Diabetes mellitus complication status: with kidney complications Diabetes mellitus complication detail: with chronic kidney disease Diabetes mellitus buttermaker insulin use: without buttermaker use Chronic kidney disease stage: stage 4 (severe) Qualified Code(s): E11.22 - Type 2 diabetes mellitus with diabetic chronic kidney disease; N18.4 - Chronic kidney disease, stage 4 (severe) (9) Osteoarthritis SNOMED Code(s): 889785275 Code(s): M19.90 - UNSPECIFIED OSTEOARTHRITIS, UNSPECIFIED SITE Status: Chronic Priority: Medium Current Visit: Yes Annotation/Comment:: Stable by history with known history of gout but no recent gout attacks Qualifiers: Osteoarthritis location: multiple joints Osteoarthritis type: primary Qualified Code(s): M15.0 - Primary generalized (osteo)arthritis (10) Tobacco abuse counseling SNOMED Code(s): 276743898, 431472175, 961680877 Code(s): Z71.6 - TOBACCO ABUSE COUNSELING Status: Chronic Priority: Medium Current Visit: Yes Annotation/Comment:: Tobacco cessation strongly advised with recommendation of tobacco cessation information to be provided to the patient at time of discharge from [facility] in [place] - Problem List Review Problem List Initiated/Reviewed/Updated: Yes - My Orders Last 24 Hours: My Active Orders 05/29/17 06:58 Cardiac Monitoring [RC] . DIRECTED EKG Documentation Completion [RC] ASDIRECTED Oxygen Therapy, ED [RC] CONTINUOUS Peripheral IV Care [RC] . DIRECTED Pulse Oximetry [RC] CONTINUOUS Up With Assistance [RC] PFP Vital Signs [RC] PFP Chest 1V Frontal [CR] Stat Sodium Chloride 0.9% [Saline Flush] 10 ml FLUSH ASDIRECTED PRN Obtain Past Medical Record [OM.PC] Urgent Peripheral IV Insertion Adult [OM.PC] Stat Resuscitation Status Stat 05/29/17 07:09 Nitroglycerin [Nitrostat] 0.4 mg SL ONETIME STA 05/29/17 07:25 Peripheral IV Care [RC] . DIRECTED Sodium Chloride 0.9% [Saline Flush] 10 ml FLUSH ASDIRECTED PRN Peripheral IV Insertion Adult [OM.PC] Routine 05/29/17 07:30 Heparin Sodium/D5W [Heparin 25,000 Units in D5W 500 ML] 25,000 units in 500 ml IV TITRATE Sodium Chloride 0.9% [Normal Saline] 1,000 ml IV ASDIRECTED 05/29/17 Breakfast Nothing per Oral Now Diet [DIET] - Assessment/Plan Last 24 Hours: My Active Orders 05/29/17 06:58 Cardiac Monitoring [RC] . DIRECTED EKG Documentation Completion [RC] ASDIRECTED Oxygen Therapy, ED [RC] CONTINUOUS Peripheral IV Care [RC] . DIRECTED Pulse Oximetry [RC] CONTINUOUS Up With Assistance [RC] PFP Vital Signs [RC] PFP Chest 1V Frontal [CR] Stat Sodium Chloride 0.9% [Saline Flush] 10 ml FLUSH ASDIRECTED PRN Obtain Past Medical Record [OM.PC] Urgent Peripheral IV Insertion Adult [OM.PC] Stat Resuscitation Status Stat 05/29/17 07:09 Nitroglycerin [Nitrostat] 0.4 mg SL ONETIME STA 05/29/17 07:25 Peripheral IV Care [RC] . DIRECTED Sodium Chloride 0.9% [Saline Flush] 10 ml FLUSH ASDIRECTED PRN Peripheral IV Insertion Adult [OM.PC] Routine 05/29/17 07:30 Heparin Sodium/D5W [Heparin 25,000 Units in D5W 500 ML] 25,000 units in 500 ml IV TITRATE Sodium Chloride 0.9% [Normal Saline] 1,000 ml IV ASDIRECTED 05/29/17 Breakfast Nothing per Oral Now Diet [DIET] Assessment:: As above Plan: As above. Extensive precautions were given to the patient, who is in agreement with the treatment plan. Air ambulances transfer
[2017-05-29] MEDS ORDERED: Nitroglycerin 0.4 MG Tab.SL SL STA (07:09)
[2017-05-29] MEDS ORDERED: Nitroglycerin 0.4 MG Tab.SL ONE (07:10)
[2017-05-29 07:25] LABS: CHLORIDE,CL 103 mmol/L (98-107); SODIUM,NA 136 mmol/L (136-145)
[2017-05-29] MEDS ORDERED: Heparin Sodium 5,000 Units/ML Vial IVPUSH ONE (07:27)
[2017-05-29] MEDS ORDERED: Furosemide 40 MG/4 ML VIAL IVPUSH ONE (07:28)
[2017-05-29] MEDS ORDERED: Sodium Chloride 0.9% 1,000 ML IV SCH (07:30)
[2017-05-29] MEDS ORDERED: Heparin Sodium/D5W 25,000 UNITS/500 ML BAG IV SCH (07:30)
[2017-05-29] MEDS ORDERED: Sodium Chloride 0.9% 1,000 ML IV ONE (07:45)
[2017-05-29 09:06] VITALS: BP 142/69
== END 2017-05-29 09:05 ==
LOC: LL.ED 06:42
DX: I13.0 Hypertensive heart and chronic kidney disease with heart failure and stage 1 through stage 4 chronic kidney disease, or unspecified chronic kidney disease (principal); I50.9 Heart failure, unspecified; N18.4 Chronic kidney disease, stage 4 (severe); D63.1 Anemia in chronic kidney disease; J44.9 Chronic obstructive pulmonary disease, unspecified; E11.22 Type 2 diabetes mellitus with diabetic chronic kidney disease; M15.0 Primary generalized (osteo)arthritis; I95.2 Hypotension due to drugs; H54.7 Unspecified visual loss; I25.10 Atherosclerotic heart disease of native coronary artery without angina pectoris; I25.2 Old myocardial infarction; K21.9 Gastro-esophageal reflux disease without esophagitis; E11.40 Type 2 diabetes mellitus with diabetic neuropathy, unspecified; E03.9 Hypothyroidism, unspecified; M81.0 Age-related osteoporosis without current pathological fracture; Z95.1 Presence of aortocoronary bypass graft; Z88.0 Allergy status to penicillin; Z79.899 Other long term (current) drug therapy; Z86.73 Personal history of transient ischemic attack (TIA), and cerebral infarction without residual deficits; Z87.891 Personal history of nicotine dependence
CPT/HCPCS: 36415; 71010; 80053; 82550; 82553; 83605; 83735; 83880; 84443; 84484; 84550; 85025; 85379; 85610; 85730; 93005; 93010; 96365; 96375; 96376; 99285; A9270; J1644; J1940; J7030; J7050; J3490; S0028